=== PATIENT | male | born 1955 | race Caucasian/White ===

== ENCOUNTER 2024-10-21 05:12 | Day surgery (SDC) | payer OTHER, MEDICAID ==
[~2024-10-21] VITALS: Ht 177.8 cm; Wt 120.5 kg
[~2024-10-21 05:12] MED LIST: ARIP5TAB37 PO; ASPI-4 PO; BUME1TAB50 PO; FOLI-130 PO; GABA-1181 PO; KETOROLAC TROMETHAMINE 0.5% 5 ML OPHTHALMIC SOLUTION ONE; METO25 PO; MOXIFLOXACIN HCL 0.5% 3 ML OPHTHALMIC SOLUTION ONE; PHENYLEPHRINE HCL 2.5% 2 ML OPHTHALMIC SOLUTION ONE; PRAV40TA4 PO; RINGERS SOLUTION,LACTATED 500 ML IV ONE; TROPICAMIDE 1% 2 ML OPHTHALMIC SOLUTION ONE; VENL-68 PO
[2024-10-21] MEDS ORDERED: BALANCED SALT 15 ML OPHTHALMIC IRRIG.SOLN OU ONE (05:13)
[2024-10-21] MEDS ORDERED: CHONDR SULF A SOD/HYALURONATE 1.05 ML KIT IO ONE (05:13)
[2024-10-21] MEDS ORDERED: FentaNYL CITRATE PF 100 MCG/2 ML VIAL ONE (05:51)
[2024-10-21] MEDS ORDERED: MIDAZOLAM HCL 2 MG/2 ML VIAL ONE (05:51)
[2024-10-21] MEDS: RINGERS SOLUTION,LACTATED 500 ML IV ONE (05:56)
[2024-10-21] MEDS: PHENYLEPHRINE HCL 2.5% 2 ML OPHTHALMIC SOLUTION OD SCH (05:56)
[2024-10-21] MEDS: MOXIFLOXACIN HCL 0.5% 3 ML OPHTHALMIC SOLUTION OD SCH (05:56)
[2024-10-21] MEDS: TROPICAMIDE 1% 2 ML OPHTHALMIC SOLUTION OD SCH (05:57)
[2024-10-21] MEDS: KETOROLAC TROMETHAMINE 0.5% 5 ML OPHTHALMIC SOLUTION OD SCH (06:00)
[2024-10-21] MEDS: TETRACAINE HCL/PF 0.5% 4 ML OPHTHALMIC SOLUTION ONE (07:10)
[2024-10-21] MEDS: BALANCED SALT 15 ML OPHTHALMIC IRRIG.SOLN ONE (07:22)
[2024-10-21] MEDS: EPINEPHrine 1:1,000 [1 MG/ML] VIAL ONE (07:23)
[2024-10-21] MEDS: LIDOCAINE/PF 1% 2 ML VIAL ONE (07:24)
[2024-10-21] MEDS: POVIDONE-IODINE 5% 30 ML OPHTHALMIC SOLUTION ONE (07:24)
== END 2024-10-21 08:30 | disposition home or self-care (01) ==
LOC: SURGERY 05:12
PROVIDERS: ATTEND Ophthalmology
DX: H25.11 Age-related nuclear cataract, right eye (principal); I10 Essential (primary) hypertension; Z79.899 Other long term (current) drug therapy; Z87.891 Personal history of nicotine dependence; E78.00 Pure hypercholesterolemia, unspecified; M17.0 Bilateral primary osteoarthritis of knee
CPT/HCPCS: 93005; 66984; J7321; J0171; J3010; J3490; J2250; J7120; V2632

== ENCOUNTER 2024-11-18 06:43 | Day surgery (SDC) | payer OTHER, MEDICAID ==
[~2024-11-18] VITALS: Ht 177.8 cm; Wt 120.0 kg
[~2024-11-18 06:43] MED LIST changes: +FentaNYL CITRATE PF 100 MCG/2 ML VIAL ONE; +MIDAZOLAM HCL 2 MG/2 ML VIAL ONE
[2024-11-18] MEDS: MOXIFLOXACIN HCL 0.5% 3 ML OPHTHALMIC SOLUTION OS SCH (07:33)
[2024-11-18] MEDS: TROPICAMIDE 1% 2 ML OPHTHALMIC SOLUTION OS SCH (07:33)
[2024-11-18] MEDS: PHENYLEPHRINE HCL 2.5% 2 ML OPHTHALMIC SOLUTION OS SCH (07:33)
[2024-11-18] MEDS: KETOROLAC TROMETHAMINE 0.5% 5 ML OPHTHALMIC SOLUTION OS SCH (07:34)
[2024-11-18] MEDS: RINGERS SOLUTION,LACTATED 500 ML IV ONE (07:59)
[2024-11-18] MEDS: TETRACAINE HCL/PF 0.5% 4 ML OPHTHALMIC SOLUTION ONE (08:22)
[2024-11-18] MEDS: EPINEPHrine 1:1,000 [1 MG/ML] VIAL ONE (08:31)
[2024-11-18] MEDS: BALANCED SALT 15 ML OPHTHALMIC IRRIG.SOLN ONE (08:31)
[2024-11-18] MEDS: POVIDONE-IODINE 5% 30 ML OPHTHALMIC SOLUTION ONE (08:32)
[2024-11-18] MEDS: LIDOCAINE/PF 1% 2 ML VIAL ONE (08:32)
[2024-11-18] MEDS ORDERED: TETRACAINE HCL/PF 0.5% 4 ML OPHTHALMIC SOLUTION OS ONE (09:00)
== END 2024-11-18 10:00 | disposition still patient (30) ==
LOC: SURGERY 06:43
PROVIDERS: ATTEND Ophthalmology
DX: E11.36 Type 2 diabetes mellitus with diabetic cataract (principal); H25.12 Age-related nuclear cataract, left eye; Z88.2 Allergy status to sulfonamides; Z98.890 Other specified postprocedural states
CPT/HCPCS: 66984; J0171; J3010; J3490; J2250; J7120; V2632